=== PATIENT | male | born 1985 | race Caucasian/White ===

== ENCOUNTER 2024-12-09 18:30 | Emergency (ER) | payer SELFPAY ==
[2024-12-09 18:40] VITALS: BP 132/77; PULSE 81; RESP 16; TEMP 36.8; O2SAT 99
--- NOTE | 2024-12-09 18:57 | W.ED.ABDPA2 ---
HPI - Abdominal Pain General: Chief Complaint: Abdominal Pain Stated Complaint: Possible Hernia Pain Time Seen by Provider: 12/09/24 18:42 Source: patient Mode of arrival: ambulatory Limitations: no limitations History of Present Illness: 39-year-old male has had a left inguinal hernia he states for quite some time he is never seen 140 states today has been having some slight pain over and has had a rash. Rates his pain a 2 out of 10 he denies any vomiting denies diarrhea denies any fevers. Associated Symptoms: Denies chills, diarrhea, fever(s), nausea and vomiting Related Data Previous Rx's ?Medication ?Instructions ?Recorded clotrimazole 1 % topical cream 1 applic topical Q12H 2 weeks #15 12/09/24 grams Allergies Allergy/AdvReac Type Severity Reaction Status Date / Time No Known Allergies Allergy Verified 12/09/24 18:43 Review of Systems Const: Denies: fever(s), chills, body aches or change in appetite ENMT: Denies: throat pain or dental pain Card: Denies: chest pain Resp: Denies: dyspnea GI: Reports: abdominal pain; Denies: nausea, vomiting or diarrhea Musc: Denies: neck pain or back pain Skin/Breast: Denies: rash Neuro: Denies: headache(s) Physical Exam Const: COMMON NORMALS: no acute distress, patient oriented x3 and healthy appearing HENMT: COMMON NORMALS: normocephalic and atraumatic HEAD & SCALP: normocephalic and atraumatic Eye: COMMON NORMALS: conjunctivae normal CONJUNCTIVA: Yes conjunctivae normal Neck/C-Spine: COMMON NORMALS: full ROM and supple Chest: COMMONS NORMALS: normal inspection of the chest Resp: COMMON NORMALS: normal respiratory effort Cardio: COMMON NORMALS: regular rate RATE: regular rate GI: COMMON NORMALS: Normal to inspection, nondistended, normoactive bowel sounds present, Soft to palpation and non-tender PALPATION: Yes Soft to palpation OTHER: Left inguinal hernia is easily reduced is not incarcerated Extremity: COMMON NORMALS: normal to inspection and full ROM Neuro: COMMON NORMALS: patient oriented x3, moves all extremities and no focal motor deficits Psych: COMMON NORMALS: mental status grossly normal, Normal thought process present and cooperative THOUGHT PROCESS: Normal thought process present Skin: COMMON NORMALS: no wounds NARRATIVE SKIN EXAM: Tinea cruris noted to groin Course Vital Signs: Vital signs: Vital Signs Temperature 98.2 F 12/09/24 18:40 Pulse Rate 81 12/09/24 18:40 Respiratory Rate 16 12/09/24 18:40 Blood Pressure 132/77 12/09/24 18:40 Pulse Oximetry 99 12/09/24 18:40 Oxygen Delivery Me thod Room Air 12/09/24 18:40 MDM - Abdominal Pain Medical Decision Making Patient presents here with inguinal hernia that is easily reduced no signs of incarceration does have tinea cruris we will place him on clotrimazole we will get him follow-up with surgery. Medical Records I reviewed the patient's medical records. No radiology studies performed this visit Discharge Plan Discharge Patient Disposition: Home Clinical Impression: Inguinal hernia, Tinea cruris Condition: Stable Prescriptions: New clotrimazole 1 % cream 1 applic topical Q12H 14 Days Qty: 15 0RF Discharge Orders: Discharge ED (Routine); Ordered 12/09/24 Ordered By: Parker Bedoya Referrals: Adarsh Reyes MD [Physician, General Surgery] - 4-7 days Discharge Diet: Advance as tolerated Discharge Activity: Resume usual activity Patient Instructions: Tinea Cruris, Inguinal Hernia (ED) Print Language: Guatemalan Coding Level of Care Code ED Water Quality Analyst for Nas Ramírez
[2024-12-09] MEDS: HYDROcodone-acetaminophen 5-325 mg Tablet 1 TAB PO (19:04)
--- NOTE | 2024-12-10 07:40 | DCPLANNER ---
Message sent to General Surgery-Patient presents here with inguinal hernia that is easily reduced no signs of incarceration does have tinea cruris we will place him on clotrimazole we will get him follow-up with surgery.
== END 2024-12-09 19:11 | disposition home or self-care (01) ==
PROVIDERS: Emergency Provider Emergency Medicine
DX: K40.90 Unilateral inguinal hernia, without obstruction or gangrene, not specified as recurrent (principal); B35.6 Tinea cruris
CPT/HCPCS: 99283; J9999

== ENCOUNTER → 2024-12-15 10:31 | Outpatient (BNVA) | payer MEDICAID, SELFPAY | PROVIDERS: PCP Family Medicine; Visit Provider Student in an Organized Health Care Education/Training Program | DX: K46.9 Unspecified abdominal hernia without obstruction or gangrene (principal) | CPT/HCPCS: 99204 ==

== ENCOUNTER 2024-12-17 11:06 | Day surgery (SDC) | payer MEDICAID, SELFPAY ==
[2024-12-17] VITALS (10 sets, daily range): BP systolic 85–118; BP diastolic 47–76; PULSE 47–62; RESP 16–19; TEMP 36.1–36.7; O2SAT 95–100; BMI 19.3
--- NOTE | 2024-12-17 12:45 | ANES.PREANE2 ---
Pre-Anesthetic Assessment Height/Weight: Height 1.75 m Weight 59.421 kg Temp Pulse Resp BP Pulse Ox O2 Del Method 98.0 F 61 17 118/76 99 Room Air 12/17/24 11:54 12/17/24 11:54 12/17/24 11:54 12/17/24 11:54 12/17/24 11:54 12/17/24 11:57 Operation Date: 12/17/24 13:10 Proposed Procedures p LEFT Open Inguinal Hernia Repair w/ Mesh [id number] K40.90(Left) - Adarsh Reyes MD Familial anesthetic complications: none Was Beta Chantale taken within 24 hours: N/A Was Clonidine taken within 24 hours: N/A Last intake: Intake Last Liquid Date 12/16/24 Last Liquid Time 22:30 Last Solid Date 12/16/24 Last Solid Time 20:30 Social Tobacco and No alcohol Exam alert, oriented x 3, clear to auscultation bilaterally and regular rate & rhythm Airway Dentition: chipped Anesthetic Plan ASA status: 1 Anesthesia: General Risk of > 500 ml blood loss (7ml/kg in children): No Medications/Allergies Home Medications ?Medication ?Instructions ?Recorded ?Confirmed ?Last Taken ?Type clotrimazole 1 % topical cream 1 applic topical Q12H 2 weeks #15 12/09/24 12/16/24 Unknown Rx grams Allergies Allergy/AdvReac Type Severity Reaction Status Date / Time Penicillins Allergy ALGY-Anaphy Verified 12/17/24 11:51 laxis Current Medications Generic Name Dose Route Start Last Admin Trade Name Freq PRN Reason Stop Dose Admin Sodium Chloride 1,000 mls @ 30 mls/hr 12/17/24 11:45 12/17/24 12:06 Sodium Chloride 0.9% IV 12/18/24 11:44 30 mls/hr .Q24H JEREMY Administration Vancomycin HCl 2,000 mg in 400 mls @ 200 mls/hr 12/17/24 11:46 12/17/24 12:06 Vancocin IV 12/17/24 13:45 200 mls/hr ONCE ONE Administration Protocol [facility] Anesthesia Social History Smoking and tobacco/nicotine status: never used tobacco/nicotine
--- NOTE | 2024-12-17 12:59 | W.PM.OPSUD ---
Surgery/Procedure H&P Update DATE OF PROCEDURE: December 17, 2024 DATE H&P PERFORMED: 12/15/24 H&P UPDATE INFORMATION: I have reviewed H&P completed within last 30 days, I have examined patient prior to procedure and No changes to prior documentation CHANGES TO PREVIOUS DOCUMENTATION: Left groin marked in preop. PLANNED PROCEDURE: Operation Date: 12/17/24 13:10 Proposed Procedures p LEFT Open Inguinal Hernia Repair w/ Mesh [id number] K40.90(Left) - Adarsh Reyes MD
[2024-12-17] MEDS: BUPivacaine 0.25% INJ 10 mL INJECTION (13:33)
[2024-12-17] MEDS: lidocaine-epi 1% 20 mL INJ 10 ML INJECTION (13:34)
--- NOTE | 2024-12-17 13:48 | PM.OP ---
Operative Report Date of procedure: December 17, 2024 Pre-op diagnosis: Symptomatic left inguinal hernia Post-op diagnosis: same Post-op findings: Medium sized indirect inguinal hernia. Reduced hernia sac into abdomen. Repaired hernia defect using plug and patch mesh size medium. Implants: Plug and patch mesh size medium Specimens removed/disposition: N/A Pathology: none sent Surgeon: Adarsh Reyes MD Scratch Brusher: N/A Anesthesia: General Estimated blood loss (mL): 10 Complications: N/A Findings: Medium sized indirect inguinal hernia. Reduced hernia sac into abdomen. Repaired hernia defect using plug and patch mesh size medium. Condition: stable Disposition: same day Brief History: 39-year-old male who presents with a left inguinal hernia. Discussed risk and benefits and patient agrees to proceed with open left inguinal hernia repair with mesh. Procedure: Patient brought to the OR and placed supine on the table. SCDs were placed and functioning. Preoperative ancef was administered. General anesthesia was induced. A thakkar catheter was placed without any complications. The left groin was prepped and draped in the usual sterile fashion. Local infiltration at the surgical site was done using lidocaine/bupivacaine with epinephrine. A 5cm incision was carried out over the left inguinal canal. Tissue dissection was carried down to the external oblique fascia using electrocautery. The fascia was incised and the cord structures were identified. Cord structures were dissected of the hernia sac. I identified a medium size indirect inguinal hernia. The hernia sac was dissected and reduced into the abdomen. The plug was placed at the site of the deep inguinal ring and the posterior wall of the inguinal canal was reinforced using a mesh patch. The plug was fixed using 2-0 ethibond to the cojoint ligament and inguinal ligament with interrupted sutures. The mesh patch was sutured to the cojoint tendon and the inguinal ligament using interrupted sutures with 2-0 ethibond. The external oblique fascia was closed using 2-0 Ethibond. Skin was closed using 4-0 monocryl and surgical glue. Thakkar was removed. The patient woke up from anesthesia and was transferred to PACU without any complications.
--- NOTE | 2024-12-17 15:30 | ANE.PACU2 ---
Inpatient post-anesthesia follow up: Airway intact: Yes Vital signs: Temperature 97.7 F Pulse Rate 62 Respiratory Rate 18 Blood Pressure 116/72 Pulse Oximetry 100 Oxygen Delivery Me thod Room Air Oxygen Flow Rate Fraction of Inspir ed Oxygen Hydration adequate: Yes Nausea and vomiting: No Pain level: 1 Mental status: Baseline
== END 2024-12-17 15:34 | disposition home or self-care (01) ==
PROVIDERS: PCP Family Medicine; Visit Provider Student in an Organized Health Care Education/Training Program
PROC: (CPT 49505; principal; 2024-12-17 13:10)
DX: K40.90 Unilateral inguinal hernia, without obstruction or gangrene, not specified as recurrent (principal)
CPT/HCPCS: 49505; C1781; J2250; J2704; J3010; J3372; J3490; J7030; J9999